=== PATIENT | male | born 1960 | race Native Hawaiian/Other Pacific Islander ===

== ENCOUNTER 2020-12-09 08:09 | Outpatient (CLI) | payer OTHER ==
[2020-12-09 08:56] LABS: PLATELET COUNT 131 K/uL (142-355)
== END 2020-12-09 18:59 | disposition home or self-care (01) ==
LOC: INF 08:09
PROVIDERS: ATTEND Internal Medicine
PROC: 30233P1 Transfusion of Nonautologous Frozen Red Cells into Peripheral Vein, Percutaneous Approach (ICD-10-PCS; principal; 2020-12-09)
DX: C34.12 Malignant neoplasm of upper lobe, left bronchus or lung (principal); B20 Human immunodeficiency virus [HIV] disease; R53.83 Other fatigue; R06.02 Shortness of breath
CPT/HCPCS: 36430; 36591; 85027; 86850; 86900; 86901; 86922; P9016